=== PATIENT | female | born 1990 | race American Indian/Alaskan Native ===

== ENCOUNTER 2017-04-11 11:11 | Emergency (ER) | payer MEDICAID ==
[2017-04-11 11:53] VITALS: BP 133/79; PULSE 78; RESP 16; TEMP 97.5; O2SAT 99
--- NOTE | 2017-04-11 12:21 | ED PDOC ---
HPI: Female Pain Time Seen by Provider: 04/11/17 11:46 Chief Complaint (Nursing): Female Genitourinary Chief Complaint (Provider): UTI History Per: Patient Additional Complaint(s): 26 yo female, no PMH, currently at 6 weeks presents to ED with complaints of vaginal bleeding noted only when wiping after urinating x 2 days now. Pt seen and evaluated in the ED at [facility] at 2 am and was diagnosed with a UTI after lab work and US were done. Pt reports that overnight the "bleeding" was brown and today it was more red which prompted repeat ED visit. Pt was given RX for Macrobid which she has yet to hot die picker. No abdominal pain, no heav vaginal bleeding. First OB appointment on Thursday of this week Past Medical History Reviewed: Nursing Documentation, Vital Signs Vital Signs: Last Vital Signs Temp 97.5 F L 04/11/17 11:50 Pulse 78 04/11/17 11:50 Resp 16 04/11/17 11:50 BP 133/79 04/11/17 11:50 Pulse Ox 99 04/11/17 11:50 - Medical History PMH: No Chronic Diseases - Surgical History Surgical History: No Surg Hx - Family History Family History: States: No Known Family Hx - Living Arrangements Living Arrangements: With Family - Social History Current smoker - smoking cessation education provided: No Alcohol: None Drugs: Denies - Allergies Allergies/Adverse Reactions: Allergies Allergy/AdvReac Type Severity Reaction Status Date / Time coconut Allergy RASH Verified 04/11/17 11:49 Review of Systems ROS Statement: Except As Marked, All Systems Reviewed And Found Negative Gastrointestinal: Negative for: Abdominal Pain Genitourinary Female: Positive for: Vaginal Bleeding Physical Exam - Reviewed Nursing Documentation Reviewed: Yes Vital Signs Reviewed: Yes - Physical Exam Appears: Positive for: Well, Non-toxic, No Acute Distress Head Exam: Positive for: ATRAUMATIC, NORMAL INSPECTION, NORMOCEPHALIC Skin: Positive for: Normal Color, Warm, DRY Eye Exam: Positive for: EOMI, Normal appearance, PERRL ENT: Positive for: Normal ENT Inspection Neck: Positive for: Normal, Painless ROM Cardiovascular/Chest: Positive for: Regular Rate, Rhythm Respiratory: Positive for: CNT, Normal Breath Sounds Gastrointestinal/Abdominal: Positive for: Normal Exam, Bowel Sounds, Soft Pelvic Exam: Positive for: Other (Pt deferred, said one was already done early am at [facility]) Back: Positive for: Normal Inspection Extremity: Positive for: Normal ROM Neurologic/Psych: Positive for: Alert, Oriented - ECG O2 Sat by Pulse Oximetry: 99 Medical Decision Making Medical Decision Making: Dip (+) leuks and blood, nites neg Preg (+) Pt educated on vaginal bleeding in , as well as signs and symptoms of UTI Given Macrobid PO US and Labs preformed at [facility] yesterday. Pt reports no abdominal pain at this time, bleeding only upon urination. Diagnostic repeat not clinically indicated at is time. Pt was unable to wait for dc paperwork to be complete, needed to leave for work. Left without signing paperwork Disposition - Clinical Impression Clinical Impression: Urinary tract infection - Patient ED Disposition Is Patient to be Admitted: No - Disposition Disposition: Routine/Home Disposition Time: 12:05 Condition: GOOD Forms: [facility] (Chinese) - POA Present On Arrival: None
== END 2017-04-11 14:15 | disposition home or self-care (01) ==
LOC: H.ER 11:11
DX: O23.40 Unspecified infection of urinary tract in pregnancy, unspecified trimester (principal)

== ENCOUNTER 2017-04-12 07:13 | Emergency (ER) | payer MEDICAID ==
[2017-04-12 07:35] VITALS: TEMP 98.3; BMI 28.1
[2017-04-12 08:38] LABS: BASO % 0.5 % (0.0-2.0); EOS # 0.2 K/uL (0.0-0.7); EOS % 2.5 % (0.0-4.0); HEMOGLOBIN 12.7 g/dL (12.0-16.0); LYMPH # 1.9 K/uL (1.0-4.3); LYMPH % 20.3 % (20.0-40.0); MEAN CELL VOLUME 88.7 fl (81.0-99.0); MEAN CORPUSCULAR HEMOGLOBIN 29.1 pg (27.0-31.0); MEAN CORPUSCULAR HGB CONC 32.8 g/dL (33.0-37.0); MEAN PLATELET VOLUME 7.7 fl (7.2-11.7); MONO # 0.7 K/uL (0.0-0.8); NEUT # 6.7 K/uL (1.8-7.0); NEUT % 69.7 % (50.0-75.0); RBC 4.35 Mil/uL (3.80-5.20); RED CELL DISTRIBUTION WIDTH 13.5 % (11.5-14.5); WHITE BLOOD COUNT 9.6 K/uL (4.8-10.8)
--- NOTE | 2017-04-12 08:46 | ED PDOC ---
HPI: Female Pain Time Seen by Provider: 04/12/17 08:03 Chief Complaint (Nursing): Female Genitourinary Chief Complaint (Provider): Vaginal bleeding History Per: Patient History/Exam Limitations: no limitations Additional Complaint(s): 26 year old female, A1, who presents to the emergency department with a complaint of vaginal bleeding that she noticed when using the bathroom this morning around 6am. Patient states she saw a blood clot the size of a quarter but had resolved since. Reports she also had on and off abdominal pain. Patient was seen in [facility] on 04/10/2017, had blood work and an ultrasound with normal results of early intrauterine , and diagnosed with an urinary tract infection (prescribed antibiotics). Denies history of blood clots or fever. Past Medical History Reviewed: Historical Data, Nursing Documentation, Vital Signs Vital Signs: Last Vital Signs Temp 98.3 F 04/12/17 07:33 Pulse 81 04/12/17 07:33 Resp 16 04/12/17 07:33 BP 113/56 L 04/12/17 07:33 Pulse Ox 98 04/12/17 07:33 - Medical History PMH: No Chronic Diseases - Surgical History Surgical History: No Surg Hx - Family History Family History: States: Unknown Family Hx - Social History Current smoker - smoking cessation education provided: No Alcohol: None Drugs: Denies - Allergies Allergies/Adverse Reactions: Allergies Allergy/AdvReac Type Severity Reaction Status Date / Time coconut Allergy RASH Verified 04/12/17 07:39 Review of Systems ROS Statement: Except As Marked, All Systems Reviewed And Found Negative (As per HPI, otherwise negative) Constitutional: Negative for: Fever Gastrointestinal: Positive for: Abdominal Pain (on/off) Genitourinary Female: Positive for: Vaginal Bleeding (Blood clot the size of a quarter ) Physical Exam - Reviewed Nursing Documentation Reviewed: Yes Vital Signs Reviewed: Yes - Physical Exam Appears: Positive for: No Acute Distress Head Exam: Positive for: NORMAL INSPECTION Skin: Positive for: Normal Color, Warm, Dry Gastrointestinal/Abdominal: Positive for: Normal Exam, Soft. Negative for: Tenderness Neurologic/Psych: Positive for: Alert, Oriented (x3) - Laboratory Results Result Diagrams: 04/12/17 08:24 04/12/17 08:24 - ECG O2 Sat by Pulse Oximetry: 98 (RA) Pulse Ox Interpretation: Normal Medical Decision Making Medical Decision Making: Time: 820 Initial Impression: Vaginal Bleeding in setting of known Initial Plan: --BMP -- Serum --Urine DIP --Urine Preg --CBC w/ diff --Transvaginal US --Reevaluation Time: 823 --Beta HCG, Quant: 1973.30 Time: 953 --Transvaginal US FINDINGS: UTERUS: Measures 9.0 x 3.7 x 4.3 cm. Normal in size and appearance. No fibroid or other mass lesion seen. ENDOMETRIUM: Measures 11 mm in diameter. No intrauterine gestational sac identified. Cannot exclude ectopic . Followup with serial beta HCG evaluation is advised. CERVIX: Cervical nabothian cyst incidentally noted. RIGHT OVARY: Measures for 2.1 x 1.4 x 1.1 cm. No solid mass. Normal flow. LEFT OVARY: Not visualize FREE FLUID: No significant free fluid noted. OTHER FINDINGS: None. IMPRESSION: No intrauterine gestation identified. Cannot rule out ectopic gestation in the absence of an intrauterine gestational sac. Follow-up with serial beta HCG evaluation is advised. Otherwise unremarkable. Scribe Attestation: Documented by Meryl Pascal, acting as a scribe for Jerilyn Fu MD. Provider Scribe Attestation: All medical record entries made by the Scribe were at my direction and personally dictated by me. I have reviewed the chart and agree that the record accurately reflects my personal performance of the history, physical exam, medical decision making, and the department course for this patient. I have also personally directed, reviewed, and agree with the discharge instructions and disposition. patient informed of ultrasond report. confirmed with patient that her [place] from [place] [facility] [place] . Patient is advised to followup with her OBGyn for serial monitoring Disposition - Clinical Impression Clinical Impression: Threatened - Patient ED Disposition Is Patient to be Admitted: No Doctor Will See Patient In The: Office Counseled Patient/Family Regarding: Diagnosis, Need For Followup - Disposition [facility]errals[facility]Outside] Disposition: Routine/Home Disposition Time: 10:28 Condition: STABLE Additional Instructions: Please see your securities clerk or go to our [facility] in 2-3 days for followup testing. Please go to the nearest ER if you are having heavy bleeding or severe abdominal pain. Instructions: Threatened Miscarriage (ED) Forms: [facility] (Z[place]an) - POA Present On Arrival: None
[2017-04-12 08:51] LABS: BLOOD UREA NITROGEN 15 mg/dl (7-17); CALCIUM 8.8 mg/dL (8.4-10.2); GFR AFRICAN-AMERICAN > 60; GFR NON-AFRICAN AMERICAN > 60
--- NOTE | 2017-04-12 09:56 | US ---
HISTORY: vaginal bleeding COMPARISON: None available. TECHNIQUE: Transvaginal FINDINGS: UTERUS: Measures 9.0 x 3.7 x 4.3 cm. Normal in size and appearance. No fibroid or other mass lesion seen. ENDOMETRIUM: Measures 11 mm in diameter. No intrauterine gestational sac identified. Cannot exclude ectopic . Followup with serial beta HCG evaluation is advised. CERVIX: Cervical nabothian cyst incidentally noted. RIGHT OVARY: Measures for 2.1 x 1.4 x 1.1 cm. No solid mass. Normal flow. LEFT OVARY: Not visualize FREE FLUID: No significant free fluid noted. OTHER FINDINGS: None. IMPRESSION: No intrauterine gestation identified. Cannot rule out ectopic gestation in the absence of an intrauterine gestational sac. Follow-up with serial beta HCG evaluation is advised. Otherwise unremarkable.
[2017-04-12 10:36] VITALS: BP 125/73; PULSE 89; RESP 19; O2SAT 99
== END 2017-04-12 10:37 | disposition home or self-care (01) ==
LOC: H.ER 07:13
DX: O20.0 Threatened abortion (principal)